=== PATIENT | female | born 1970 | race African-American/Black ===

== ENCOUNTER 2017-10-17 21:49 | Emergency (ER) | payer MEDICAID ==
[~2017-10-17] VITALS: Ht 165.1 cm; Wt 77.1 kg
[~2017-10-17 21:49] MED LIST: CYCL5TAB89 PO; IBUP800T24 PO
[2017-10-17] MEDS ORDERED: IBUPROFEN 800 MG TAB PO ONE (22:45)
[2017-10-17] MEDS ORDERED: ONDANSETRON HCL 4 MG/2 ML VIAL IM ONE (23:30)
[2017-10-17] MEDS ORDERED: NALBUPHINE HCL 10 MG/1ml INJECTION IM ONE (23:30)
[2017-10-18 01:39] VITALS: BP 139/67
== END 2017-10-18 01:41 | disposition home or self-care (01) ==
LOC: EDBD 21:49 → EDSEX 21:49 → ER 21:50
DX: S16.1XXA Strain of muscle, fascia and tendon at neck level, initial encounter (principal); M54.17 Radiculopathy, lumbosacral region; Z79.1 Long term (current) use of non-steroidal anti-inflammatories (NSAID); Z79.899 Other long term (current) drug therapy; V43.52XA Car driver injured in collision with other type car in traffic accident, initial encounter; Y93.89 Activity, other specified; Y99.8 Other external cause status; Y92.410 Unspecified street and highway as the place of occurrence of the external cause
CPT/HCPCS: 70450; 72125; 72131; 96372; 99284; J2300; J2405

== ENCOUNTER 2019-02-05 18:49 | Emergency (ER) | payer MEDICAID ==
[~2019-02-05] VITALS: Ht 167.6 cm; Wt 79.4 kg
[2019-02-05 19:20] VITALS: BP 138/93
[2019-02-05] MEDS: HYDROcodone-ACET 5/325MG TAB PO ONE ×2 (20:28→21:28)
[2019-02-05] MEDS: DexAMETHasone SOD PHOS 10MG/1ML VIAL INJ IM ONE ×2 (20:28→21:28)
== END 2019-02-05 21:45 | disposition home or self-care (01) ==
LOC: ER 18:50
DX: S86.911A Strain of unspecified muscle(s) and tendon(s) at lower leg level, right leg, initial encounter (principal); X58.XXXA Exposure to other specified factors, initial encounter; Y93.39 Activity, other involving climbing, rappelling and jumping off; Y92.89 Other specified places as the place of occurrence of the external cause; Y99.8 Other external cause status; M25.461 Effusion, right knee; Z79.899 Other long term (current) drug therapy
CPT/HCPCS: 29505; 73562; 96372; 99283; J1100

== ENCOUNTER 2020-09-09 20:29 | Emergency (ER) | payer MEDICAID ==
[~2020-09-09] VITALS: Ht 170.2 cm; Wt 72.6 kg
[~2020-09-09 20:29] MED LIST changes: -IBUP800T24 PO; +IBUP800T27 PO
[2020-09-09 21:35] VITALS: BP 164/94
[2020-09-09] MEDS ORDERED: KETOROLAC TROMETH 60MG/2ML VIAL IM ONE (22:30)
== END 2020-09-10 00:07 | disposition home or self-care (01) ==
LOC: ER 20:30
DX: M54.42 Lumbago with sciatica, left side (principal); M54.16 Radiculopathy, lumbar region
CPT/HCPCS: 96372; 99283; J1885

== ENCOUNTER 2023-04-09 15:37 | Emergency (ER) | payer MEDICAID ==
[~2023-04-09] VITALS: Ht 167.6 cm; Wt 87.7 kg
[~2023-04-09 15:37] MED LIST changes: +IBUP-1456 PO; -IBUP800T27 PO
[2023-04-09] MEDS ORDERED: cefTRIAXone SOD 1,000 MG VL IM ONE (15:45)
[2023-04-09] MEDS ORDERED: MUPI2OIN2 EX ×3 (15:49→17:16)
[2023-04-09] MEDS ORDERED: CEPH500T PO ×3 (15:49→17:16)
[2023-04-09] MEDS ORDERED: BACDST PO ×3 (15:49→17:16)
[2023-04-09] MEDS ORDERED: DexAMETHasone SOD PHOS 10MG/1ML VIAL INJ IM ONE (16:00)
[2023-04-09 16:29] VITALS: BP 129/87; PULSE 71; RESP 16; TEMP 98.5; O2SAT 97
== END 2023-04-09 16:57 | disposition home or self-care (01) ==
LOC: ER 15:37
DX: L03.113 Cellulitis of right upper limb (principal); S50.861A Insect bite (nonvenomous) of right forearm, initial encounter; W57.XXXA Bitten or stung by nonvenomous insect and other nonvenomous arthropods, initial encounter; Y93.89 Activity, other specified; Y92.89 Other specified places as the place of occurrence of the external cause; Y99.8 Other external cause status
CPT/HCPCS: 96372; 99284; J0696; J1100